=== PATIENT | female | born 1980 | race Caucasian/White ===

== ENCOUNTER → 2016-09-01 | Outpatient (CLI) | payer OTHER | LOC: BMCIMAGING 14:49 | PROVIDERS: ATTEND Family Medicine | DX: S99.922A Unspecified injury of left foot, initial encounter (principal); W22.8XXA Striking against or struck by other objects, initial encounter ==

== ENCOUNTER → 2016-12-29 | Outpatient (CLI) | payer OTHER | LOC: FIMAGING 15:00 | PROVIDERS: ATTEND Obstetrics & Gynecology Gynecology | DX: N63 Unspecified lump in breast (principal); N64.4 Mastodynia | CPT/HCPCS: G0204 ==

== ENCOUNTER → 2017-04-25 | Outpatient (CLI) | payer OTHER | LOC: FCPNEURO 21:00 | PROVIDERS: ATTEND Psychiatry & Neurology Sleep Medicine | DX: G47.00 Insomnia, unspecified (principal); R06.83 Snoring; R51 Headache ==

== ENCOUNTER 2018-08-28 12:40 | Emergency (ER) | payer OTHER ==
[2018-08-28] MEDS ORDERED: NS 1,000 ML IV ONE (13:44)
[2018-08-28] MEDS ORDERED: KETOROLAC 30 MG/1 ML SDV IVP ONE (13:44)
[2018-08-28] MEDS ORDERED: ONDANSETRON 4 MG/2 ML VIAL IVP ONE (13:44)
[2018-08-28] MEDS ORDERED: fentaNYL 100 MCG/2 ML INJ IVP ONE (13:44)
--- NOTE | 2018-08-28 13:59 | EDPHY ---
H & P Time Seen by Provider: 08/28/18 13:15 HPI/ROS: CHIEF COMPLAINT: Migraine HISTORY OF PRESENT ILLNESS: Patient is a 37-year-old female presents emergency department with persistent headache. The patient states her migraine started 18 days ago. She has been taking were normal medications to try to abort her headaches. This include Botox, CgRP, Horizant, magnesium, Onzetral and methyl folate. She has not had any significant relief. She has had intermittent episodes of resolution but her headache persisted today. She describes for incidences of a "crowbar to my neck" sensation. These occur when she is having emotional stress. She denies any focal weakness or numbness. No visual change. No fevers or chills. No neck stiffness. REVIEW OF SYSTEMS: 10 systems were reveiwed and are negative with the exception of the elements mentioned in the history of present illness. Past Medical/Surgical History: Includes migraine, polycystic ovarian syndrome, depression, anxiety, Lyme disease Smoking Status: Never smoked Physical Exam: Vitals noted GENERAL: Mild acute distress, alert. HEENT: Eyes normal to inspection, normal pharynx, no signs of dehydration. NECK: Normal, supple. RESPIRATORY: Clear to auscultation bilaterally, no rales, rhonchi or wheezing. CVS: Regular rate and rhythm, no rubs, murmurs, or gallops. ABDOMEN: Soft, nontender, nondistended, no organomegaly. BACK: Normal to inspection, no CVA tenderness. SKIN: Normal color, no rash, warm, dry. No pallor. EXTREMITIES: No pedal edema, no calf tenderness, no Homans sign or cords, no joint swelling. NEURO/PSYCH: Higher functions: Alert and Oriented x3. Normal speech and cognition. Normal mood and affect. Cranial nerves: Normal as tested. Cerebellar: Normal as tested. Good finger to nose, good [id number], normal gait. Peripheral exam: Normal motor exam. Normal sensation. Normal reflexes. Constitutional: Initial Vital Signs Temperature (C) 37 C 08/28/18 12:49 Heart Rate 84 08/28/18 12:49 Respiratory Rate 16 08/28/18 12:49 Blood Pressure 157/96 H 08/28/18 12:49 O2 Sat (%) 97 08/28/18 12:49 O2 Delivery Mode Room Air Allergies/Adverse Reactions: No Known Allergies Allergy (Unverified 08/28/18 12:53) Home Medications: Medication Instructions Recorded Aleve 08/28/18 Ambien 08/28/18 Aspirin 81mg (*) 08/28/18 Berberine 08/28/18 Botox 08/28/18 Cambia 08/28/18 Cgrp 08/28/18 Horizant 08/28/18 Magnesium 08/28/18 Melatonin 08/28/18 Mirena 08/28/18 Multivitamin 08/28/18 OXcarbazepine 08/28/18 Onzetra Xsail 08/28/18 Promethazine HCl 08/28/18 Propranolol HCl 08/28/18 Sprix 08/28/18 Wellbutrin Sr 08/28/18 Zipsor 08/28/18 Zomig 08/28/18 [id number] 15 mg Cap 08/28/18 Medical Decision Making - Diagnostics Imaging Results: Imaging Impressions Head CT 08/28/18 13:52 Impression: Normal brain. No acute intracranial hemorrhage or swelling. Findings discussed with Emergency Department physician, LULI BLACK at 15:08. ED Course/Re-evaluation: In the emergency department I discussed possible etiologies with the patient. I answered all her questions. IV was placed. The patient was given fentanyl, Zofran, Benadryl, and Toradol for her migraine symptoms. Laboratory studies, CT of the head, CT angiogram of the head were ordered. I rechecked the patient. She was feeling much better. Her headache had resolved. No focal neurologic deficits. Patient's white count was elevated 9. Chemistry panel is unremarkable. was negative. Head CT: Please refer the dictated report. Negative CT angio head neck: Please refer the dictated report. No acute disease noted. I discussed the results with the patient. I answered all her questions. She was given warnings prior to leaving. She will return worsening symptoms. Differential Diagnosis: My differential includes but is not limited to migraine, CVA, dissection, aneurysm - Data Points Laboratory Results: Laboratory Results 08/28/18 13:53 08/28/18 13:53 08/28/18 08/28/18 08/28/18 13:53 13:53 13:53 WBC 9.82 10^3/uL H 10^3/uL (3.80-9.50) RBC 4.58 10^6/uL 10^6/uL (4.18-5.33) Hgb 15.1 g/dL g/dL (12.6-16.3) Hct 43.4 % % (38.0-47.0) MCV 94.8 fL fL (81.5-99.8) MCH 33.0 pg pg (27.9-34.1) MCHC 34.8 g/dL g/dL (32.4-36.7) RDW 11.9 % % (11.5-15.2) Plt Count 251 10^3/uL 10^3/uL (150-400) MPV 9.0 fL fL (8.7-11.7) Neut % (Auto) 93.1 % H % (39.3-74.2) Lymph % (Auto) 5.2 % L % (15.0-45.0) [place] % (Auto) 1.2 % L % (4.5-13.0) Eos % (Auto) 0.0 % L % (0.6-7.6) Baso % (Auto) 0.1 % L % (0.3-1.7) Nucleat RBC Rel Count 0.0 % % (0.0-0.2) Absolute Neuts (auto) 9.14 10^3/uL H 10^3/uL (1.70-6.50) Absolute Lymphs (auto) 0.51 10^3/uL L 10^3/uL (1.00-3.00) Absolute Monos (auto) 0.12 10^3/uL L 10^3/uL (0.30-0.80) Absolute Eos (auto) 0.00 10^3/uL L 10^3/uL (0.03-0.40) Absolute Basos (auto) 0.01 10^3/uL L 10^3/uL (0.02-0.10) Absolute Nucleated RBC 0.00 10^3/uL 10^3/uL (0-0.01) Immature Gran % 0.4 % % (0.0-1.1) Immature Gran # 0.04 10^3/uL 10^3/uL (0.00-0.10) RBC/WBC/PLT Morphology TNP Platelet Estimate TNP Sodium 130 mEq/L L mEq/L (135-145) Potassium 4.4 mEq/L mEq/L (3.5-5.2) Chloride 97 mEq/L mEq/L (97-110) Carbon Dioxide 22 mEq/l mEq/l (22-31) Anion Gap 11 mEq/L mEq/L (6-14) BUN 11 mg/dL mg/dL (7-23) Creatinine 0.5 mg/dL L mg/dL (0.6-1.0) Estimated GFR > 60 Glucose 118 mg/dL H mg/dL (70-100) Calcium 9.4 mg/dL mg/dL (8.5-10.4) Beta HCG, Qual NEGATIVE Medications Given: Discontinued Medications Diphenhydramine HCl (Benadryl Injection) 25 mg IVP EDNOW ONE Stop: 08/28/18 13:45 Last Admin: 08/28/18 14:10 Dose: 25 mg Fentanyl (Sublimaze) 100 mcg IVP EDNOW ONE Stop: 08/28/18 13:45 Last Admin: 08/28/18 14:11 Dose: 100 mcg Sodium Chloride (Ns) 1,000 mls @ 0 mls/hr IV ONCE ONE; Wide Open PRN Reason: Protocol Stop: 08/28/18 13:45 Last Admin: 08/28/18 14:08 Dose: 1,000 mls Ketorolac Tromethamine (Toradol) 30 mg IVP EDNOW ONE Stop: 08/28/18 13:45 Last Admin: 08/28/18 14:11 Dose: 30 mg Ondansetron HCl (Zofran) 4 mg IVP EDNOW ONE Stop: 08/28/18 13:45 Last Admin: 08/28/18 14:08 Dose: 4 mg Departure - Departure Disposition: Home, Routine, Self-Care Clinical Impression: Headache Qualifiers: Headache type: unspecified Headache chronicity pattern: acute headache Intractability: not intractable Qualified Code(s): R51 - Headache Condition: Good Instructions: Acute Headache (ED) Additional Instructions: Return with increasing headache, weakness, numbness, or any other concerns. Referrals: NAZARIO FELTON [Other] - 2-3 days, if not improved
[2018-08-28 14:09] LABS: PLATELET COUNT 251 10^3/uL (150-400)
[2018-08-28] MEDS ORDERED: IOPAMIDOL (ISOVUE 370) 100 ML BTL IV ONE (14:30)
[2018-08-28 15:28] VITALS: BP 131/88
== END 2018-08-28 15:34 | disposition home or self-care (01) ==
DX: R51 Headache (principal); E86.9 Volume depletion, unspecified
CPT/HCPCS: 96374; J1200; J1885; J2405; J3010; Q9967